=== PATIENT | male | born 1970 | race African-American/Black ===

== ENCOUNTER 2021-04-30 21:29 | Emergency (ER) | payer MEDICAID ==
[~2021-04-30] VITALS: Ht 182.9 cm; Wt 86.2 kg
[~2021-04-30 21:29] MED LIST: BACL10TA4 PO; BEN50 PO; CHOL20001 PO; DIT5 PO; GABA300C PO; OXYC15TA2 PO; OXYC40TE66 PO
[2021-04-30 21:32] VITALS: BP 156/93
--- NOTE | 2021-04-30 21:43 | NUR ---
PATIENT TAKEN TO BED 5 VIA GURNEY.
--- NOTE | 2021-04-30 23:31 | NUR ---
Patient being evaluated by physician at bedside.
[2021-04-30] MEDS ORDERED: PANTOPRAZOLE 40 MG INJ VIAL IVP ONE (23:50)
[2021-04-30] MEDS ORDERED: MORPHINE SULFATE 2 MG/ML SYR IVP ONE (23:50)
[2021-04-30] MEDS ORDERED: NACL 0.9% 1,000 ML IV SCH (23:50)
[2021-04-30] MEDS ORDERED: ONDANSETRON 4 MG/2 ML VIAL IVP ONE (23:50)
[2021-05-01 00:02] LABS: BASOPHILS % (AUTO) 0.7 % (0.0-2.0); HEMATOCRIT 44.8 % (36-52); HEMOGLOBIN 15.1 g/dL (12.0-18.0); LYMPHOCYTES # (AUTO) 1.2 K/uL (2.0-11.5); LYMPHOCYTES % (AUTO) 21.6 % (20.5-51.1); MEAN CORPUSCULAR HEMOGLOBIN 29 pg (27-31); MEAN CORPUSCULAR HGB CONC 34 g/dL (33-37); MONOCYTES # (AUTO) 0.5 K/uL (0.8-1.0); MONOCYTES % (AUTO) 8.5 % (1.7-9.3); NEUTROPHILS # (AUTO) 3.7 K/uL (1.8-7.7); NEUTROPHILS % (AUTO) 69.2 % (42.2-75.2); PLATELET COUNT (AUTO) 182 K/uL (140-450); RED BLOOD CELL COUNT(AUTO) 5.27 MIL/uL (4.20-6.10); RED CELL DISTRIBUTION WIDTH 13.2 % (11.6-13.7); WHITE BLOOD COUNT (AUTO) 5.4 K/uL (4.8-10.8)
--- NOTE | 2021-05-01 00:07 | NUR ---
EKG PERFORMED AT BEDSIDE. EKG READS SINUS RHYTHM @ 76
[2021-05-01 00:24] LABS: ALBUMIN 4.7 g/dL (3.4-5.0); ANION GAP 11.5 (8-16); CARBON DIOXIDE 30.7 mmol/L (21-32); POTASSIUM 4.2 mmol/L (3.5-5.1); TOTAL BILIRUBIN 0.8 mg/dL (0.0-1.0)
[2021-05-01] MEDS ORDERED: MORPHINE SULFATE 2 MG/ML SYR IVP ONE ×2 (01:35→02:25)
[2021-05-01 02:35] VITALS: BP 156/93
--- NOTE | 2021-05-01 02:35 | NUR ---
Patient discharged with v/s stable. Written and verbal after care instructions given and explained. Patient verbalized understanding. Ambulatory with steady gait. All questions addressed prior to discharge. Advised to follow up with PMD. Addendum: 05/01/21 at 0251 by SUREKHA IV ACCESS REMOVED, CANNULA INTACT
[2021-05-01] MEDS ORDERED: PANT40EC PO (07:00)
[2021-05-01] MEDS ORDERED: BACL10TA4 PO (07:00)
[2021-05-01] MEDS ORDERED: OXYC40TE66 PO (07:00)
[2021-05-01] MEDS ORDERED: VITD400 PO (07:00)
[2021-05-01] MEDS ORDERED: HYDR2TAB6 PO (07:00)
[2021-05-01] MEDS ORDERED: [UNRECOGNIZED DRUG - CODE] PO (07:00)
[2021-05-01] MEDS ORDERED: AMLO2.5T PO (07:00)
== END 2021-05-01 02:35 | disposition home or self-care (01) ==
LOC: MED 21:29
DX: R10.13 Epigastric pain (principal); E86.0 Dehydration; I10 Essential (primary) hypertension; Z88.5 Allergy status to narcotic agent; Z88.6 Allergy status to analgesic agent; Z79.899 Other long term (current) drug therapy
CPT/HCPCS: 36415; 74176; 80053; 83690; 84484; 85025; 96361; 96374; 96375; 96376; 99285; C9113; J2270; J2405; J7030; 93005

== ENCOUNTER 2021-05-01 05:34 | Observation (INO) | payer MEDICAID ==
[~2021-05-01] VITALS: Ht 182.9 cm; Wt 86.2 kg
[2021-05-01 05:40] VITALS: BP 149/86
--- NOTE | 2021-05-01 05:43 | NUR ---
PT AMBULATED TO BED 1
--- NOTE | 2021-05-01 05:50 | NUR ---
51/M BIB SELF. PT WAS CALLED BY [facility] TO COME BACK DUE TO NEED FOR FURTHER TESTING. PT COMPLAINING OF ABD PAIN 8/10 SHARP RADIATING TO THE POSTERIOR RLQ . DENIES ANY CHEST PAIN, DIFFICULTY BREATHING, AND SOB AT THIS TIME. AAOX4. PMH: PANCREATITIS, HTN, MULTIPLE SCLEROSIS ALLERGY: ACETAMINOPHEN
--- NOTE | 2021-05-01 06:09 | NUR ---
PATIENT FULLY VAX WITH PFIZER
--- NOTE | 2021-05-01 06:51 | NUR ---
PATIENT ASKING FOR PAIN MEDICATION FOR PAIN OF 8/10. MD MADE AWARE
[2021-05-01] MEDS ORDERED: AMLO2.5T PO (07:00)
[2021-05-01] MEDS ORDERED: PANT40EC PO (07:00)
[2021-05-01] MEDS ORDERED: HYDR2TAB6 PO (07:00)
[2021-05-01] MEDS ORDERED: BACL10TA4 PO (07:00)
[2021-05-01] MEDS ORDERED: VITD400 PO (07:00)
[2021-05-01] MEDS ORDERED: OXYC40TE66 PO (07:00)
[2021-05-01] MEDS ORDERED: [UNRECOGNIZED DRUG - CODE] PO (07:00)
--- NOTE | 2021-05-01 07:12 | NUR ---
REPORT RECEIVED FROM EAMON RN, TRANSFER OF CARE AT THIS TIME. PT LAYING IN BED WITH EVEN AND UNLABORED RESPIRATIONS. PT IN HOURLY SHIFT MANAGER. VSS. WILL CONTINUE TO MONITOR.
--- NOTE | 2021-05-01 07:54 | NUR ---
PT STILL C/O 06/03 EPIGASTRIC PAIN AND REQUESTING PAIN MEDICATION, ERMD MADE AWARE
[2021-05-01] MEDS ORDERED: MORPHINE SULFATE 2 MG/ML SYR IVP ONE (08:00)
[2021-05-01] MEDS ORDERED: ONDANSETRON 4 MG/2 ML VIAL IVP ONE (08:00)
[2021-05-01] MEDS ORDERED: MAGNESIUM OXIDE 400 MG TAB PO PRN (08:25)
[2021-05-01] MEDS ORDERED: MAG SULF 2000 MG/WATER PREMIX 50 ML IV PRN (08:25)
[2021-05-01] MEDS ORDERED: POTASSIUM CHLORIDE 10 MEQ TABER PO PRN (08:25)
[2021-05-01] MEDS ORDERED: KCL 20 MEQ/WATER INJ PREMIX 200 ML IV PRN (08:25)
[2021-05-01] MEDS ORDERED: ASPIRIN 325 MG TAB PO ONE (08:30)
--- NOTE | 2021-05-01 09:10 | NUR ---
GAVE REPORT TO VIVIANA DUVALL FOR ADMIT TO TELEMETRY 111B. ETA 10 MINS
--- NOTE | 2021-05-01 09:11 | NUR ---
RECEIVED REPORT FROM ER NURSE PT IS AAOX4 AMBULATORY WITH CANE, ON ROOM AIR, FULL CODE, SKIN INTACT IV ON THE RIGHT AC G20, WITH PAIN PUMP BUT NOT WORKING, NPO EXCEPT MEDS, 1 MG MORPHINE GIVEN AT 0815, ZOFRAN 4 MG AND ASPIRIN 325 MG GIVEN. CHEST XRAY NEGATIVE.
[2021-05-01 09:20] VITALS: BP 115/78
--- NOTE | 2021-05-01 09:20 | NUR ---
PATIENT BROUGHT TO UNIT AND ASSISTED TO BED, ORIENTED TO ROOM, SAFETY PRECAUTIONS IN PLACE, PT VITAL SIGNS TAKEN, CALL LIGHT WITHIN REACH.
--- NOTE | 2021-05-01 09:25 | NUR ---
Patient will be admitted to care of DR SHILOH HEATH. Admited to TELEMETRY. Will go to room 111B. Belongings list completed. Report to VIVIANA DUVALL.
--- NOTE | 2021-05-01 10:00 | NUR ---
MRSA SWAB TAKEN BY MS. MENJIVAR AND SENT TO LAB.
[2021-05-01 12:00] VITALS: BP 100/58
[2021-05-01] MEDS ORDERED: HYDROmorphone 1 MG/ML AMP IVP PRN (12:35)
[2021-05-01] MEDS: HYDROmorphone 1 MG/ML AMP IVP PRN ×3 (12:56→20:42)
--- NOTE | 2021-05-01 12:56 | NUR ---
PT COMPLAINS OF 8/10 ABDOMINAL PAIN. BP 132/71, HR 60. GAVE MEDICATION FOR PAIN. WILL CONTINUE TO MONITOR.
--- NOTE | 2021-05-01 15:22 | NUR ---
PATIENT HAS BEEN SCREENED AND CATEGORIZED HIGH NUTRITION RISK. PATIENT WILL BE SEEN WITHIN 1-2 DAYS OF ADMISSION. 05/01/21-05/02/21 FNS REFERRAL FOR REFUSING TO EAT OVER [address]
--- NOTE | 2021-05-01 15:37 | NUR ---
PT STATES PAIN HAS REMAINED 06/03 AND REQUESTED OXYCODONE HE TAKES THIS TID AT HOME. DR HEATH NOTIFIED AND ORDERED FOR 15MG OXYCODONE. DR STATED OXYCODONE WAS OK TO ADMINISTER WITH HYDROMORPHONE ALLERGY.
[2021-05-01 16:00] VITALS: BP 126/66
--- NOTE | 2021-05-01 16:00 | NUR ---
PT BP 126/67, HR 78. 9/10 PAIN. PRN MEDICATION ADMINISTERED. STARTED ON NS AT 75 ML/HR INFUSING WELL.
[2021-05-01] MEDS: NACL 0.9% 1,000 ML IV SCH (16:01)
[2021-05-01] MEDS: oxyCODONE 5 MG TAB PO SCH (17:14)
--- NOTE | 2021-05-01 19:31 | NUR ---
ENDORSED TO NIGHT NURSE FOR CONTINUITY OF CARE. PT IS STABLE.
--- NOTE | 2021-05-01 19:40 | NUR ---
REPORT GIVEN BY AM SHIFT. PT IS ALERT,ORIENTED X4. PT NO S/S ANY RESP DISTRESS, NO SOB. PT ON ROOM AIR. SR ON TELE MONITOR. PER REPORT PT IS UNDER OBSERVATION FOR PAIN. PT IS NPO EXCEPT MEDS. IV LINE TO RIGHT AC NO 20 WITH NS RUNNING AT 75 CC/HR ROSLYN WELL. PT IS CONTINENT BOWEL AND BLADDER. PT AMBULATORY USING CANE TO RESTROOM. KEPT CLEAN AND DRY.CALL LIGHT IN REACH.
[2021-05-01 20:00] VITALS: BP 134/76
--- NOTE | 2021-05-01 20:43 | NUR ---
PT C/O SEVERE PAIN TO ABD . PAIN LEVEL 9/10. PRN DILAUDID GIVEN ORDER .CONT TO MONITOR. V/S T 97.0, P 87, R 20 ,B/P 134/76.
--- NOTE | 2021-05-01 21:30 | NUR ---
PT SAID PAIN REDUCE TO 5/10.CONT TO MONITOR.
--- NOTE | 2021-05-01 23:37 | NUR ---
PT STILL C/O PAIN AFTER DILAUDID WAS GIVEN ORDER. PT SAID TO CALL MD IF HE CAN GET ANOTHER PAIN MEDS. PAGE HEEL SHAPER FOR DR. KUMAR SPAULDING.WAITING FOR CALL BACK.
[2021-05-02] VITALS: BP 139/67
[2021-05-02] MEDS: HYDROmorphone 1 MG/ML AMP IVP PRN ×2 (00:09→04:37)
--- NOTE | 2021-05-02 00:23 | NUR ---
PT C/O PAIN AGAIN PAIN LEVEL 9/10 PER PT AND PT MADE AWARE MD WAS PAGE BUT NO RETURN CALL BACK YET. OFFERED PRN PAIN MED TO PT AND PT AGREE WITH IT. DILAUDID 1 MG IVP GIVEN PRN FOR SEVERE PAIN. V/S T 97.3, P 86,R 20,B/P 139/67,SP02 99%. CONT TO MONITOR.
--- NOTE | 2021-05-02 01:00 | NUR ---
PT LOOK RELAX AND RESTING,PAIN LEVEL DOWN TO 5/10. CONT TO MONITOR
[2021-05-02 04:00] VITALS: BP 126/61
[2021-05-02] MEDS: NACL 0.9% 1,000 ML IV SCH (04:37)
--- NOTE | 2021-05-02 04:40 | NUR ---
PT C/O PAIN AGAIN 06/03 PRN DILAUDID GIVEN ORDER
--- NOTE | 2021-05-02 05:15 | NUR ---
PT SAID PAIN IS BETTER PAIN LEVEL ABOUT 4/10
[2021-05-02 06:27] LABS: BASOPHILS # (AUTO) 0.1 K/uL (0.00-0.22); HEMATOCRIT 46.1 % (36-52); HEMOGLOBIN 15.7 g/dL (12.0-18.0); LYMPHOCYTES # (AUTO) 2.1 K/uL (2.0-11.5); MEAN CORPUSCULAR HGB CONC 34 g/dL (33-37); MONOCYTES # (AUTO) 0.8 K/uL (0.8-1.0)
[2021-05-02 06:28] LABS: BASOPHILS % (AUTO) 0.7 % (0.0-2.0); EOSINOPHILS % (AUTO) 0.1 % (0.0-4.0); LYMPHOCYTES % (AUTO) 25.9 % (20.5-51.1); MEAN CORPUSCULAR HEMOGLOBIN 29 pg (27-31); MONOCYTES % (AUTO) 10.3 % (1.7-9.3); NEUTROPHILS # (AUTO) 5.1 K/uL (1.8-7.7); PLATELET COUNT (AUTO) 186 K/uL (140-450); RED BLOOD CELL COUNT(AUTO) 5.36 MIL/uL (4.20-6.10); RED CELL DISTRIBUTION WIDTH 13.2 % (11.6-13.7); WHITE BLOOD COUNT (AUTO) 8.1 K/uL (4.8-10.8)
--- NOTE | 2021-05-02 07:36 | NUR ---
REPORT GIVEN TO AM SHIFT MADE AWARE THAT PT BEEN ASKING FOR PAIN MEDS AND MD WAS PAGED AT NIGHT NO CALL BACK . PT STILL NPO FOR OBSERVATION.
[2021-05-02 08:00] VITALS: BP 122/68
[2021-05-02] MEDS: oxyCODONE 5 MG TAB PO SCH ×2 (08:10→12:30)
--- NOTE | 2021-05-02 08:10 | NUR ---
PT COMPLAINS OF 8/10 PAIN PT OFFERED PRN MEDICATION PT REFUSED MEDICATION RETURNED. PT STATES MEDICATION PRESCRIBED WILL BE SUFFICIENT. PRESCRIBED MEDICATIONS GIVEN PER MD ORDER PT EDUCATED PT VERBALIZED UNDERSTANDING. NO S/SX OF DISTRESS. ALL SAFETY MEASURES ARE IN PLACE
[2021-05-02 08:50] LABS: CARBON DIOXIDE 28.2 mmol/L (21-32); CREATININE 0.8 mg/dL (0.6-1.3); POTASSIUM 4.2 mmol/L (3.5-5.1)
[2021-05-02] MEDS ORDERED: ENOXAPARIN 40 MG/0.4 ML SYR SUBQ SCH (09:00)
--- NOTE | 2021-05-02 09:10 | NUR ---
MEDICATIONS GIVEN PER MD ORDER PT EDUCATED PT VERBALIZED UNDERSTANDING. NO S/SX OF DISTRESS. ALL SAFETY MEASURES ARE IN PLACE
--- NOTE | 2021-05-02 11:20 | NUR ---
PT AMBULATED TO RESTROOM TOLERATED WELL.
--- NOTE | 2021-05-02 12:30 | NUR ---
PT COMPLAINS OF PAIN. MEDICATIONS GIVEN PER MD ORDER PT EDUCATED PT VERBALIZED UNDERSTANDING. NO S/SX OF DISTRESS. ALL SAFETY MEASURES ARE IN PLACE
--- NOTE | 2021-05-02 13:00 | NUR ---
MEDICATIONS GIVEN PER MD ORDER PT EDUCATED PT VERBALIZED UNDERSTANDING. NO S/SX OF DISTRESS. ALL SAFETY MEASURES ARE IN PLACE
[2021-05-02 13:06] VITALS: BP 114/75
[2021-05-02 14:37] VITALS: BP 128/78
--- NOTE | 2021-05-02 15:10 | NUR ---
PT DISCHARGE INSTRUCTIONS COMPLETE. PT IV REMOVED CANULA INTACT. PT VERBALIZED UNDERSTANDING FOR CONTINUITY OF CARE. PT LEFT VIA WHEEL CHAIR. PT AMBULATED WITH CARE TO PRIVATE VEHICLE. PT IN STABLE CONDITION
== END 2021-05-02 15:15 | disposition home or self-care (01) ==
LOC: MED 05:34 → MTU 08:29
PROVIDERS: ADMIT Internal Medicine; ATTEND Internal Medicine
DX: G89.4 Chronic pain syndrome (principal); K86.1 Other chronic pancreatitis; G35 Multiple sclerosis; R94.31 Abnormal electrocardiogram [ECG] [EKG]; Z79.899 Other long term (current) drug therapy
CPT/HCPCS: 36415; 71045; 80048; 84484; 85025; 87081; 93005; 93307; 96361; 96372; 96374; 96375; 96376; 99285; G0378; J1170; J1650; J2270; J2405

== ENCOUNTER 2021-06-23 13:46 | Emergency (ER) | payer MEDICAID ==
[~2021-06-23] VITALS: Ht 182.9 cm; Wt 83.9 kg
[~2021-06-23 13:46] MED LIST changes: +AMLO2.5T PO; +HYDR2TAB6 PO; +PANT40EC PO; +VITD400 PO; +[UNRECOGNIZED DRUG - CODE] PO
[2021-06-23 13:56] VITALS: BP 125/68
--- NOTE | 2021-06-23 14:00 | NUR ---
TO ED BED 01 VIA [facility]
--- NOTE | 2021-06-23 14:05 | NUR ---
51 Y/O MALE BIBA WITH C/O SCROTAL BLEEDING FROM SCRATCHING TOO HARD. PT HAS NO ACTIVE BLEDDING AT THIS TIME. NO RASH, REDNESS. PMHX: PANCREATITIS, MS ALLERGIES: VICODIN
--- NOTE | 2021-06-23 14:06 | NUR ---
Female Plumbing Installer accompanied MALE patient for Pelvic Exam. PA EVALUATED SCROTAL AREA LACERATION. DAVIE AYALA AT BEDSIDE TO ASSESS
[2021-06-23] MEDS ORDERED: NYSTRC TP (14:12)
[2021-06-23] MEDS ORDERED: BACI1PAC6 TP (14:12)
[2021-06-23 14:28] VITALS: BP 122/67
--- NOTE | 2021-06-23 14:29 | NUR ---
Patient discharged with v/s stable. Written and verbal after care instructions given and explained. Patient alert, oriented and verbalized understanding of instructions. Ambulatory with steady gait. All questions addressed prior to discharge. ID band removed. Patient advised to follow up with PMD. Rx of BACITRACIN OINT, NYSTATIN-TRIAMINOLONE given. Patient educated on indication of medication including possible reaction and side effects. Opportunity to ask questions provided and answered.
== END 2021-06-23 14:29 | disposition home or self-care (01) ==
LOC: MED 13:46
DX: S30.813A Abrasion of scrotum and testes, initial encounter (principal); I10 Essential (primary) hypertension; Z88.6 Allergy status to analgesic agent; Z88.5 Allergy status to narcotic agent; X58.XXXA Exposure to other specified factors, initial encounter; Y93.89 Activity, other specified; Y92.89 Other specified places as the place of occurrence of the external cause; Y99.8 Other external cause status
CPT/HCPCS: 99283

== ENCOUNTER 2022-12-31 14:46 | Emergency (ER) | payer MEDICAID ==
[~2022-12-31] VITALS: Ht 182.9 cm; Wt 89.8 kg
[~2022-12-31 14:46] MED LIST changes: +BACI-416 TP; -CHOL20001 PO; +CHOL200047 PO; -DIT5 PO; +NYSTRC TP; +OXYB5TAB44 PO; +OXYC40TA3 PO; -OXYC40TE66 PO
[2022-12-31 15:40] VITALS: BP 123/67
--- NOTE | 2022-12-31 15:53 | NUR ---
PT W/C ASSISTED TO BED 7
--- NOTE | 2022-12-31 16:16 | NUR ---
52YO MALE PT C/O SHANNON FEET PAIN AND SWELLING X1WEEK. REPORTS SUDDEN INTERMITTENT EPISODES W/ PAIN AT MOST ON TOUCH. NON PITTING EDEMA NOTED IN LL LEG. PT RECOMMENDED BY URGENT TO COME TO ER FOR DVT R/O. DENIES RECENT INJURY ,CHEST PAIN, SOB, N/V/D, FEVER OR CHILLS. PT AAOX4, WHEELCHAIR ASSISTED TO ROOM. HOB POSITIONED PER COMFORT. HX: PANCREATITIS ALLERGIES: TYLENOL, HYDROCODONE
[2022-12-31 18:17] LABS: BASOPHILS % (AUTO) 0.4 % (0.0-2.0); EOSINOPHILS % (AUTO) 0.5 % (0.0-4.0); HEMATOCRIT 38.7 % (36-52); HEMOGLOBIN 12.7 g/dL (12.0-18.0); LYMPHOCYTES # (AUTO) 1.3 K/uL (2.0-11.5); LYMPHOCYTES % (AUTO) 20.8 % (20.5-51.1); MEAN CORPUSCULAR HEMOGLOBIN 28 pg (27-31); MEAN CORPUSCULAR HGB CONC 33 g/dL (33-37); MEAN CORPUSCULAR VOLUME 86.1 fL (80-94); MONOCYTES % (AUTO) 16.7 % (1.7-9.3); NEUTROPHILS # (AUTO) 3.7 K/uL (1.8-7.7); NEUTROPHILS % (AUTO) 61.6 % (42.2-75.2); PLATELET COUNT (AUTO) 139 K/uL (140-450); RED BLOOD CELL COUNT(AUTO) 4.49 MIL/uL (4.20-6.10); RED CELL DISTRIBUTION WIDTH 13.1 % (11.6-13.7); WHITE BLOOD COUNT (AUTO) 6.1 K/uL (4.8-10.8)
[2022-12-31 18:40] LABS: ALBUMIN 3.9 g/dL (3.4-5.0); ANION GAP 9.9 (8-16); CARBON DIOXIDE 30.8 mmol/L (21-32); CREATININE 0.8 mg/dL (0.6-1.3); POTASSIUM 3.7 mmol/L (3.5-5.1); TOTAL BILIRUBIN 0.7 mg/dL (0.0-1.0)
[2022-12-31 18:51] LABS: PROTHROMBIN TIME 10.5 secs (10.8-13.4)
--- NOTE | 2022-12-31 19:32 | NUR ---
REPORT GIVEN TO LISSY RN. TRANSFER OF CARE AT THIS TIME.
[2022-12-31 20:15] VITALS: BP 114/65
--- NOTE | 2022-12-31 20:17 | NUR ---
Patient discharged with v/s stable. Written and verbal after care instructions given and explained. Patient verbalized understanding. Ambulatory with steady gait. All questions addressed prior to discharge. Advised to follow up with PMD.
== END 2022-12-31 20:15 | disposition home or self-care (01) ==
LOC: MED 14:46
DX: R60.0 Localized edema (principal); Z88.5 Allergy status to narcotic agent; Z79.899 Other long term (current) drug therapy
CPT/HCPCS: 36415; 80053; 85025; 85610; 85730; 93971; 99285; Q0092

== ENCOUNTER 2023-02-13 14:58 | Emergency (ER) | payer MEDICAID ==
[~2023-02-13] VITALS: Ht 188 cm; Wt 86.2 kg
--- NOTE | 2023-02-13 15:10 | NUR ---
PT. AMBULATED TO BED 9, NO ACUTE DISTRESS
[2023-02-13 15:22] VITALS: BP 143/62
[2023-02-13 15:44] LABS: BASOPHILS % (AUTO) 0.8 % (0.0-2.0); EOSINOPHILS # (AUTO) 0.1 K/uL (0-0.4); EOSINOPHILS % (AUTO) 0.9 % (0.0-4.0); HEMATOCRIT 38.2 % (36-52); HEMOGLOBIN 12.8 g/dL (12.0-18.0); LYMPHOCYTES # (AUTO) 1.7 K/uL (2.0-11.5); LYMPHOCYTES % (AUTO) 29.3 % (20.5-51.1); MEAN CORPUSCULAR HEMOGLOBIN 29 pg (27-31); MEAN CORPUSCULAR HGB CONC 34 g/dL (33-37); MEAN CORPUSCULAR VOLUME 85.8 fL (80-94); MONOCYTES # (AUTO) 0.7 K/uL (0.8-1.0); MONOCYTES % (AUTO) 11.7 % (1.7-9.3); NEUTROPHILS # (AUTO) 3.3 K/uL (1.8-7.7); NEUTROPHILS % (AUTO) 57.3 % (42.2-75.2); PLATELET COUNT (AUTO) 151 K/uL (140-450); RED BLOOD CELL COUNT(AUTO) 4.45 MIL/uL (4.20-6.10); RED CELL DISTRIBUTION WIDTH 13.3 % (11.6-13.7); WHITE BLOOD COUNT (AUTO) 5.8 K/uL (4.8-10.8)
--- NOTE | 2023-02-13 16:02 | NUR ---
PT C/O INTERMITANT CHEST PAIN X 4MTHS, SEEN BY PCP LAST WEEK, EKG WAS DONE. DR CALLED TO INFORM HIM HE MIGHT BE HAVING A HEART ATTACK AND TO GO TO HOSPITAL. NO ACUTE DISTRESS.
[2023-02-13 16:30] LABS: ALBUMIN 3.8 g/dL (3.4-5.0); ANION GAP 9.9 (8-16); ASPARTATE AMINOTRANSFERASE 18 U/L (15-37); CARBON DIOXIDE 30.5 mmol/L (21-32); CHLORIDE 104 mmol/L (98-107); CREATININE 0.9 mg/dL (0.6-1.3); GFR ARICAN-AMERICAN 114 mL/min (>90); GLUCOSE 102 mg/dL (74-106); POTASSIUM 3.4 mmol/L (3.5-5.1); SODIUM SERUM 141 mmol/L (136-145); TOTAL BILIRUBIN 0.5 mg/dL (0.0-1.0); UREA NITROGEN, BLOOD 10 mg/dL (7-18)
== END 2023-02-13 17:17 | disposition home or self-care (01) ==
LOC: MED 14:58
DX: R00.2 Palpitations (principal); G35 Multiple sclerosis; I10 Essential (primary) hypertension; Z88.5 Allergy status to narcotic agent; Z88.8 Allergy status to other drugs, medicaments and biological substances; Z79.899 Other long term (current) drug therapy
CPT/HCPCS: 36415; 71045; 80053; 84484; 85025; 85379; 93005; 99285; J7030; Q0092

== ENCOUNTER 2023-04-20 05:30 | Emergency (ER) | payer MEDICAID ==
[~2023-04-20] VITALS: Ht 182.9 cm; Wt 90.7 kg
[~2023-04-20 05:30] MED LIST changes: -BACI-416 TP; +BACI-418 TP
[2023-04-20 05:38] VITALS: BP 139/77; PULSE 84; RESP 16; TEMP 98.6; O2SAT 97
--- NOTE | 2023-04-20 05:49 | NUR ---
pt ambulatory to bed #5
[2023-04-20 06:02] VITALS: O2SAT 99
--- NOTE | 2023-04-20 06:08 | NUR ---
53YO M BIB SELF C/O CHEST PAIN THAT WOKE HIM UP FROM HIS SLEEP THIS AM. CP 06/03. PT STATES CP COMES AND GOES EVERY 20 SECONDS. ON BEDSIDE MONITOR SR 71. SKIN WARM AND DRY. AXO4 DENIES SOB. ? MULTIPLE SCLEROSIS, HTN, CHRONIC PANCREATITIS
[2023-04-20 06:19] LABS: BASOPHILS % (AUTO) 0.6 % (0.0-2.0); EOSINOPHILS % (AUTO) 0.8 % (0.0-4.0); HEMATOCRIT 41.3 % (36-52); HEMOGLOBIN 13.7 g/dL (12.0-18.0); LYMPHOCYTES # (AUTO) 1.6 K/uL (2.0-11.5); LYMPHOCYTES % (AUTO) 35.2 % (20.5-51.1); MEAN CORPUSCULAR HEMOGLOBIN 29 pg (27-31); MEAN CORPUSCULAR HGB CONC 33 g/dL (33-37); MEAN CORPUSCULAR VOLUME 86.5 fL (80-94); MONOCYTES # (AUTO) 0.5 K/uL (0.8-1.0); MONOCYTES % (AUTO) 11.4 % (1.7-9.3); NEUTROPHILS # (AUTO) 2.4 K/uL (1.8-7.7); PLATELET COUNT (AUTO) 151 K/uL (140-450); RED BLOOD CELL COUNT(AUTO) 4.77 MIL/uL (4.20-6.10); RED CELL DISTRIBUTION WIDTH 13.7 % (11.6-13.7); WHITE BLOOD COUNT (AUTO) 4.6 K/uL (4.8-10.8)
--- NOTE | 2023-04-20 06:20 | NUR ---
LABS COLLECTED AND SENT
[2023-04-20 06:32] LABS: ALBUMIN 4.1 g/dL (3.4-5.0); ANION GAP 12.1 (8-16); CARBON DIOXIDE 30.6 mmol/L (21-32); CREATININE 0.8 mg/dL (0.6-1.3); POTASSIUM 3.7 mmol/L (3.5-5.1); TOTAL BILIRUBIN 0.4 mg/dL (0.0-1.0)
[2023-04-20] MEDS ORDERED: ALUMINUM HYD/MAG/SIMETHICONE 30 ML UDC PO ONE (06:40)
[2023-04-20] MEDS ORDERED: KETOROLAC 15 MG/ML VIAL IVP ONE (06:40)
[2023-04-20 07:18] VITALS: O2SAT 96
--- NOTE | 2023-04-20 07:18 | NUR ---
REPORT RECEIVED FROM CHRIS MAN.
--- NOTE | 2023-04-20 08:03 | NUR ---
LAB AT BEDSIDE FOR REPEAT TROPONIN DRAW
[2023-04-20 09:10] VITALS: BP 144/78; PULSE 74; RESP 17; O2SAT 98
== END 2023-04-20 09:09 | disposition home or self-care (01) ==
LOC: MED 05:30
DX: R07.9 Chest pain, unspecified (principal); I10 Essential (primary) hypertension; Z88.5 Allergy status to narcotic agent; Z79.899 Other long term (current) drug therapy
CPT/HCPCS: 36415; 71045; 80053; 83690; 83880; 84484; 85025; 93005; 96374; 99285; J1885; Q0092

== ENCOUNTER 2023-07-02 04:45 | Emergency (ER) | payer MEDICAID ==
[~2023-07-02] VITALS: Ht 182.9 cm; Wt 90.7 kg
[2023-07-02 04:56] VITALS: BP 137/81; PULSE 85; RESP 14; TEMP 99.5; O2SAT 96
[2023-07-02] MEDS ORDERED: IBUP-2213 PO (07:04)
== END 2023-07-02 07:32 | disposition home or self-care (01) ==
LOC: MED 04:45
DX: M54.12 Radiculopathy, cervical region (principal); R20.0 Anesthesia of skin; R20.2 Paresthesia of skin; I10 Essential (primary) hypertension; Z88.5 Allergy status to narcotic agent; Z88.6 Allergy status to analgesic agent; Z79.899 Other long term (current) drug therapy; Z90.49 Acquired absence of other specified parts of digestive tract
CPT/HCPCS: 72125; 99284